=== PATIENT | female | born 1960 | race Caucasian/White ===

== ENCOUNTER 2018-01-31 11:01 | Outpatient (CLI) | payer BC ==
--- NOTE | 2018-02-12 16:12 | MMO ---
BILATERAL SCREENING MAMMOGRAMS: Date: 01/31/18 Comparison made to prior exams from 2017 and 2016. This patient's mammogram was interpreted with the assistance of computer-aided detection. FINDINGS: Scattered fibroglandular densities. No evidence of mass or distortion. No suspicious calcification. N o evidence of interval change. Recommend one year follow-up. IMPRESSION: BIRADS 1: Negative POS: NIK
== END 2018-01-31 11:02 | disposition home or self-care (01) ==
LOC: SCSMAMMO 11:01
PROVIDERS: ATTEND Family Medicine
DX: Z12.31 Encounter for screening mammogram for malignant neoplasm of breast (principal)
CPT/HCPCS: 77067

== ENCOUNTER 2018-03-24 07:38 | Outpatient (CLI) | payer BC ==
[2018-03-24 08:55] LABS: Bilirubin Negative (Negative); Blood, Urine Moderate (Negative); Clarity Clear (Clear); Glucose, Urine (Dipstick) Negative (Negative); Leukocyte Negative (Negative); Nitrite Negative (Negative); Protein, Urine (Dipstick) Negative (Neg-Trace); Urobilinogen 0.2 mg/dL (0.2-1.0); pH, Urine 5.5 (5.0-9.0)
[2018-03-24] MEDS ORDERED: Iopamidol 370 76% 100 ML VIAL ONE (09:00)
[2018-03-24 09:02] LABS: Bacteria/HPF Rare-Few HPF (None Seen); Squamous Epithelial 0-3 HPF (0-3); WBC/HPF 0-3 HPF (0-3)
--- NOTE | 2018-03-24 09:05 | CT ---
CT ABDOMEN AND PELVIS WITH AND WITHOUT IV CONTRAST: HISTORY: A 57-year-old female with microscopic hematuria. FINDINGS: The lung bases are clear. The liver, spleen, and adrenal glands are normal. No calcified gallstones are seen. No free air, free fluid, or lymphadenopathy is seen in the abdomen or pelvis. No calculi are noted in the kidneys, ureters, or urinary bladder. No hydroureteronephrosis is seen o n either side. Post contrast images demonstrate low density lesions in the left kidney, the largest measuring 13 mm and consistent with a cyst. The other small lesions are too small to characterize bu t are statistically likely to represent cysts. No enhancing renal mass is seen. There is normal con trast excretion into the ureters and the urinary bladder. There are vascular calcifications without evidence of aneurysmal dilatation of the abdominal aorta. A uterus and ovaries are present. There are degenerative changes in the spine. A normal appearing ap pendix is present. IMPRESSION: 1. No CT evidence of urinary tract calculi or obstruction. 2. Left renal cyst. POS: NIK
== END 2018-03-24 07:39 | disposition home or self-care (01) ==
LOC: SCSCT 07:38
PROVIDERS: ATTEND Obstetrics & Gynecology
DX: R31.21 Asymptomatic microscopic hematuria (principal); N28.1 Cyst of kidney, acquired
CPT/HCPCS: 74178; 81001